=== PATIENT | female | born 1945 | race Caucasian/White ===

== ENCOUNTER 2021-08-17 13:24 | Inpatient (IN) | payer MEDICARE, OTHER, SELFPAY ==
[2021-08-17] VITALS (15 sets, daily range): BP systolic 104–167; BP diastolic 41–95; PULSE 49–60; RESP 17–32; TEMP 36.1–38.1; O2SAT 91–100; BMI 26.4
--- NOTE | ~2021-08-17 | XR_ITS ---
EXAMINATION: XR chest 1V portable INDICATION: Shortness of breath TECHNIQUE: Portable AP chest at 1345 hours COMPARISON: None available FINDINGS: There are surgical changes in the right upper lobe. No focal airspace opacities are identif ied. The cardiomediastinal silhouette is normal for technique. There is no pleural effusion or pneumo thorax. IMPRESSION: 1. No acute cardiopulmonary abnormality. Reviewed, dictated and finalized at location A. TED CIRCUIT BOARD ASSEMBLER
--- NOTE | 2021-08-17 13:37 | ECG_ITS ---
Measurements Intervals [place] Rate: 51 P: 65 MS: 149 QRS: 52 QRSD: 82 T: 102 QT: 446 QTc: 414 Interpretive Statements SINUS RHYTHM WITH SECOND DEGREE AV BLOCK, 2:[address] & T-WAVE ABNORMALITY- HIGH LATERAL LEADS ABNORMAL ECG Electronically Signed On 08-17-2021 17:02:48 CHEMICAL OPERATIONS AND TRAINING by Jose Antonio Colon D.O.
[2021-08-17 13:56] LABS: Basophils Percent Auto 0.3 % (0.2-1.2); Eosinophils Percent Auto 0.4 % (0-4.4); Hematocrit 37.9 % (37.0-47.0); Hemoglobin 11.9 g/dL (12.0-15.0); Immature Granulocyte Absolute 0.05 K/mm3 (0.00-0.031); Immature Granulocyte Percent A 0.5 % (0-0.5); Lymphocytes Absolute Auto 0.95 K/mm3 (0.9-3.2); Lymphocytes Percent Auto 8.9 % (18.3-44.2); Mean Corpuscular HGB Conc 31.4 g/dl (32-36); Mean Corpuscular Hemoglobin 30.2 pg (26-34); Mean Corpuscular Volume 96.2 fl (80-100); Mean Platelet Volume 10.3 fl (7.4-10.4); Monocytes Absolute Auto 0.6 K/mm3 (0.1-0.6); Monocytes Percent Auto 5.5 % (2.6-8.5); Neutrophils Percent Auto 84.4 % (45.5-73.1); Platelet Count Result 315 k/mm3 (150-375); Red Blood Count 3.94 M/mm3 (4.2-5.4); Red Cell Distribution Width 13.2 % (11.5-14.5); White Blood Count 10.7 K/mm3 (4.5-10.0)
[2021-08-17 14:07] LABS: Partial Thromboplastin Time 28.7 SECONDS (22.3-36.8); Prothrombin Time 12.8 Seconds (11.1-14.7)
[2021-08-17 14:08] LABS: Alanine Aminotransferase 26 U/L (4-35); Albumin Level 4.5 g/dL (3.5-5.1); Alkaline Phosphatase 85 U/L (38-126); Anion Gap 12 mmol/L (8-16); Aspartate Amino Transferase 25 U/L (14-36); Bilirubin,Total 0.7 mg/dL (0.2-1.3); Blood Urea Nitrogen 36 mg/dL (7-17); Calcium 9.5 mg/dL (8.4-10.2); Carbon Dioxide 23 mmol/L (22-30); Chloride 103 mmol/L (98-107); Estimated CRCL calculation 17 ml/min; Estimated Glomerular Filt Rate 20; Glucose 161 mg/dL (65-110); Potassium 4.4 mmol/L (3.4-5.0); Sodium 138 mmol/L (137-145)
[2021-08-17 14:25] LABS: NT Pro B Type Natriuretic Pept 6190 pg/mL (5-100)
[2021-08-17 14:26] LABS: Troponin I 0.059 ng/mL (0.000-0.034)
--- NOTE | 2021-08-17 14:33 | ECG_ITS ---
Measurements Intervals [place] Rate: 50 P: NC: 0 QRS: -13 QRSD: 86 T: 106 QT: 466 QTc: 428 Interpretive Statements SINUS RHYTHM WITH COMPLETE HEART BLOCK JUNCTIONAL ESCAPE RHYTHM ST-T WAVE ABNORMALITY IN HIGH LATERAL LEADS- CONSIDER ISCHEMIA BASELINE ARTIFACT- II, III, AVR, AVF, V1-V6 ABNORMAL ECG Electronically Signed On 08-17-2021 17:04:31 SUPERVISOR METALIZING by Jose Antonio Colon D.O.
--- NOTE | 2021-08-17 15:21 | ED.GENADULT ---
HPI - General Adult General Chief complaint: Shortness of Breath/Dyspnea Stated complaint: SOB Time Seen by Provider: 08/17/21 13:32 History of Present Illness HPI narrative: Patient is a 76-year-old female who presents ER with chest pain or shortness of breath with exertion. Ongoing for 5 days. Cannot walk across her home which is only 950 square feet without having the symptoms. Only improved with rest. Has not had similar symptoms previously. No fevers or chills or sweats. Denies productive cough. No syncope or loss of consciousness. She does not get dizzy when she goes from sitting to standing. Related Data Home Medications Medication Instructions Recorded Confirmed Calcium 600 1,500 mg BYMOUTH DAILY 08/17/21 08/17/21 albuterol sulfate 1 puff INHALATION PRN PRN 08/17/21 08/17/21 atorvastatin 10 mg PO HS 08/17/21 08/17/21 dextroamphetamine 15 mg BID 08/17/21 08/17/21 diltiazem HCl 120 mg PO BID 08/17/21 08/17/21 fluticasone propion-salmeterol 1 inh INHALATION Q12H 08/17/21 08/17/21 [Advair Diskus] lorazepam 0.5 mg BYMOUTH PRN 08/17/21 08/17/21 tiotropium bromide [Spiriva with 1 cap INHALATION DAILY 08/17/21 08/17/21 HandiHaler] trazodone 50 mg BYMOUTH HS 08/17/21 08/17/21 Allergies Allergy/AdvReac Type Severity Reaction Status Date / Time cyclobenzaprine Allergy Severe BLISTERS Verified 08/17/21 19:11 dextromethorphan Allergy Severe HIVES Verified 08/17/21 19:11 diphenhydramine Allergy Severe HIVES Verified 08/17/21 19:11 doxylamine Allergy Severe HIVES Verified 08/17/21 19:11 eucalyptus Allergy Severe HIVES Verified 08/17/21 19:11 guaifenesin Allergy Severe HIVES Verified 08/17/21 19:11 menthol Allergy Severe HIVES Verified 08/17/21 19:11 methylphenidate Allergy Severe HIVES Verified 08/17/21 19:11 naproxen Allergy Severe HIVES Verified 08/17/21 19:11 peanut Allergy Severe HIVES Verified 08/17/21 19:11 phenylephrine Allergy Severe HIVES Verified 07/02/18 10:02 pseudoephedrine Allergy Severe HIVES Verified 07/02/18 10:02 RED WINE Allergy Unknown HIVES.. Uncoded 07/02/18 10:02 Review of Systems Review of Systems: All systems reviewed & are unremarkable except as noted in HPI and below Constitutional: Constitutional: Denies chills, Denies fever(s) and Denies weakness ENT: Denies nasal congestion and Denies sore throat Cardiovascular: Cardiovascular: Reports chest pain, Denies rapid heart rate and Denies radiating jaw, neck or arm pain Respiratory: Respiratory: Denies cough, Reports dyspnea and Denies wheezing Gastrointestinal: Gastrointestinal: Denies abdominal pain, Denies nausea and Denies vomiting Neurologic: Denies syncope, Denies focal weakness and Denies numbness PMFSH Past Medical History Medical History (Updated 08/17/21 @ 22:17 by Colette Coker PA-C) Bladder cancer Status post cystectomy. Cancer of right lung Completely excised. Required no further treatment. Chronic kidney disease Chronic obstructive pulmonary disease Diverticulitis Hyperlipidemia Hypertension Obstructive sleep apnea Resolved post UPPP. Surgical History Surgical History (Updated 08/17/21 @ 22:12 by Colette Coker PA-C) History of bilateral cataract extraction History of colonoscopy with polypectomy History of pneumonectomy Partial right pneumonectomy for lung cancer. History of repair of dehiscence of vaginal cuff History of sinus surgery History of tonsillectomy History of total cystectomy With creation of ileal conduit for bladder cancer. History of total hysterectomy History of uvulopalatopharyngoplasty Family History Family History Sibling Colon cancer Sibling Malignant neoplasm of prostate Sibling Lung cancer Mother Hypertension Acute myocardial infarction Cerebrovascular accident Father Cerebrovascular accident Acute myocardial infarction Sibling Diabetes mellitus Social History Social History (Updated 08/17/21 @
--- NOTE | 2021-08-17 17:15 | PM.IMHP ---
H&P: HPI History of Present Illness Date/Time: 08/17/21 17:15 Chief Complaint: Shortness of breath. Narrative: This is a very pleasant 76-year-old female with history of hypertension, hyperlipidemia, COPD, chronic kidney disease, bladder cancer, and lung cancer who presented to the emergency department earlier today via EMS from home for evaluation of shortness of breath. Since Thursday she has noticed that she is getting short of breath with day-to-day activities such as getting dressed, which is completely unusual for her. She has also had a of couple of episodes where she feels a slight discomfort or ?a little bubble? in the center of her chest though that seems to be self-limiting and resolves within minutes. Over the last couple of days she has also felt weak in her legs when standing. Initially she was concerned for possible pulmonary embolism and thus she came in today for evaluation. EKG in the emergency department showed findings of complete heart block and a call was placed to her recruitment manager in [place] however there were no beds available for transfer and thus she is being admitted in this setting for consultation with Dr. Berry. With further questioning the patient mentions that she recently had her diltiazem dose increased to help control her blood pressure a bit better however she stopped taking it after a couple of weeks as it made her feel off balance and unsteady. She monitors her blood pressures at home and reports that they have been stable however over the past week or so she has noticed that her pulse has dropped into the 50s when typically it is at least in the 70s or 80s. She denies syncope, near syncope, chest pain, pleuritic pain, palpitations, orthopnea, PND, lower extremity edema, nausea, vomiting, and sweats. Review of Systems Review of Systems: Twelve systems were reviewed. No fever, chills, or sweats. No recent cold or flu symptoms. [facility] Past Medical History Medical History (Updated 08/17/21 @ 22:17 by Colette Coker PA-C) Bladder cancer Status post cystectomy. Cancer of right lung Completely excised. Required no further treatment. Chronic kidney disease Chronic obstructive pulmonary disease Diverticulitis Hyperlipidemia Hypertension Obstructive sleep apnea Resolved post UPPP. Surgical History Surgical History (Updated 08/17/21 @ 22:12 by Colette Coker PA-C) History of bilateral cataract extraction History of colonoscopy with polypectomy History of pneumonectomy Partial right pneumonectomy for lung cancer. History of repair of dehiscence of vaginal cuff History of sinus surgery History of tonsillectomy History of total cystectomy With creation of ileal conduit for bladder cancer. History of total hysterectomy History of uvulopalatopharyngoplasty Family History Family History (Updated 08/17/21 @ 22:14 by Colette Coker PA-C) Sibling Colon cancer Sibling Malignant neoplasm of prostate Sibling Lung cancer Mother Hypertension Acute myocardial infarction Cerebrovascular accident Father Cerebrovascular accident Acute myocardial infarction Sibling Diabetes mellitus Social History Social History (Updated 08/17/21 @ 22:15 by Colette Coker PA-C) Social History: Surrogate decision maker: Piero Junior, kathe. Code status: Full code. Smoking packs per day: 1 Smoking cigarettes per day: 20.0 Years smoked: 40 Smoking pack-years: 40.00 Smoking status: Former smoker Tobacco type: cigarettes and e-cigarettes/vaping Additional smoking assessment comments: Patient continues to vape. Alcohol intake: never Substance use: never Additional living arrangements comments: The patient lives in her own home in [place]. Additional occupation/education comments: Retired from the [employer]. Meds Home Medications and Allergies Allergies Allergy/AdvReac Type Severity Reaction Status Date / Time cyclobenzaprine Allergy Severe
[2021-08-17] MEDS: FUROSEMIDE INJ 40 MG/4 ML VIAL IV PUSH (18:04)
--- NOTE | 2021-08-17 18:06 | PC.NURSE ---
Patient having sudden onset of increased respiratory effort. Patient states it is harder to take a deep breath. EDP David in room. Patient to be placed on BiPAP.
--- NOTE | 2021-08-17 18:23 | PC.NURSE ---
Report received by KAREN Gonzalez with the ED department at [id number]. All questions answered and plan of care reviewed. Patient to go to IMU room 201.
--- NOTE | 2021-08-17 19:35 | PC.NURSE ---
Pt appears anxious on bipap and keeps grabbing at it, requesting water. Educated pt on need to remain on bipap until RT arrives to transport pt to ICU. Pt verbalized understanding.
--- NOTE | 2021-08-17 20:02 | ADMGEN ---
This patient, Radha Junior, was admitted to Intensive Care Unit-6. Patient/family oriented to hospital policies and general routines including ID bracelet, bed and alarms, visiting hours, pain management, procedures, bathroom and other care routines, personal items, smoking policy, room service/diet, and visiting hours. Information on how to activate the Rapid Response Team has been discussed. Patient/Family are encouraged to report perceived risks to care and to ask questions if they do not understand what they are told or what they should do.
[2021-08-18] VITALS (13 sets, daily range): BP systolic 125–151; BP diastolic 47–70; PULSE 46–54; RESP 14–22; TEMP 36.9–37.6; O2SAT 91–95
[2021-08-18 04:41] LABS: Hematocrit 33.7 % (37.0-47.0); Mean Corpuscular HGB Conc 32.6 g/dl (32-36); Mean Corpuscular Hemoglobin 30.2 pg (26-34); Mean Corpuscular Volume 92.6 fl (80-100); Mean Platelet Volume 10.4 fl (7.4-10.4); Platelet Count Result 327 k/mm3 (150-375); Red Blood Count 3.64 M/mm3 (4.2-5.4); Red Cell Distribution Width 13.3 % (11.5-14.5); White Blood Count 9.7 K/mm3 (4.5-10.0)
[2021-08-18 04:53] LABS: Alanine Aminotransferase 21 U/L (4-35); Albumin Level 3.8 g/dL (3.5-5.1); Alkaline Phosphatase 73 U/L (38-126); Anion Gap 10 mmol/L (8-16); Aspartate Amino Transferase 20 U/L (14-36); Bilirubin,Total 0.6 mg/dL (0.2-1.3); Blood Urea Nitrogen 38 mg/dL (7-17); Calcium 8.7 mg/dL (8.4-10.2); Carbon Dioxide 25 mmol/L (22-30); Chloride 104 mmol/L (98-107); Estimated CRCL calculation 14 ml/min; Estimated Glomerular Filt Rate 18; Glucose 149 mg/dL (65-110); Magnesium 2.2 mg/dL (1.6-2.3); Potassium 4.1 mmol/L (3.4-5.0); Sodium 139 mmol/L (137-145)
[2021-08-18 05:38] LABS: Thyroid Stimulating Hormone Reflex 0.578 uIU/mL (0.465-4.68)
--- NOTE | 2021-08-18 09:19 | PM.CNCAR ---
Assessment and Plan Additional Plan This is a 76-year-old woman presenting to the hospital with the onset of shortness of breath 5-7 days ago. He does have underlying lung disease with prior history of smoking and a previous history of right upper lobectomy for carcinoma in the past. Despite this before the last week or so she has not been experiencing significant dyspnea. Upon arrival to the hospital she has been found to have AV node dysfunction with AV dissociation and a narrow QRS escape rhythm with a heart rate in the low 50s. She had been taking diltiazem for many years the dosage was recently increased by her physician although she was feeling poorly and reduce the dosage back to 120 mg recently. In this setting she presents with AV dissociation. She has been off the diltiazem now for approximately 24 hours. Her rhythm does look some better this morning she appears to be conducting two-to-one rather than complete heart block at this moment. At this point it is not certain that a pacemaker device will need to be implanted. We will watch her rhythm for at least another 24 hours in the hospital off of diltiazem and then make that decision. It would be useful if the echocardiogram from her physician's office could be obtained for our review however that certainly will not be possible on Thursday. At this time we have no additional cardiac recommendations to make for today Bob Berry MD [facility] History of Present Illness History of Present Illness Consult date/time: 08/18/21 09:19 Reason For Visit: complete heart block Narrative: This is a very pleasant 76-year-old lady am seeing at the request of the hospitalist because of AV block. The patient is unknown to me prior to this encounter. Apparently she has not had any previous significant cardiac problems all she although she says she has a wool scourer out in [place] in the [facility] who provides her primary care as well as follows her cardiac status. She says that she has been given diltiazem for many years as an antihypertensive. She started to feel badly with the exertional shortness of breath last weekend or on Thursday of this past week. She says with modest activities that normally she can not carry out without any difficulty she was experiencing dyspnea and she was hoping this would resolve but when it did not she finally came into [facility] yesterday for evaluation. In the emergency room was noted that she was bradycardic and electrocardiogram was done which demonstrates sinus rhythm with AV dissociation and a narrow QRS escape rhythm with a heart rate in the 50s. In this setting she was admitted to the hospital for further observation and management. She reports that her physician in [facility] did an echocardiogram for some reason within the last couple of weeks and she was to see him in follow-up in the near future to discuss those findings. She can not tell me specifically why that exam was done. She is not having any symptoms of chest pain pressure or heaviness she is not experiencing orthopnea PND or accumulating edema. She has never had a syncopal episode. The patient states that during a recent appointment her diltiazem dosage was increased from 120 mg to 240 mg to treat her blood pressure more aggressively. She felt poorly when the dosage was increased and on her own accord reduced it back to 120. In this setting I am seeing her in consultation today. She is supine in bed offers no complaints and appears to be very comfortable. Current telemetry demonstrates sinus rhythm with 2-1 conduction at a heart rate of 51. Her principal comorbidities include a couple of malignancies. She has had a previous carcinoma of the bladder and has an ileal conduit and also has a history of non-small cell lung cancer status post right upper lobectomy in the past out at [facility]. Review of Systems Constitutional: Constitutional: Reports fatigue and Reports leth
--- NOTE | 2021-08-18 11:02 | WPDCNINT ---
Assessment and Plan Assessment and plan (1) Complete heart block: Code(s): I44.2 - Atrioventricular block, complete Status: Acute Assessment and Plan: Patient presented with worsening dyspnea, possible chest discomfort -in the ER was found to be in complete heart block, -this morning she has a 2:1 block -troponin slightly elevated -appreciate Cardiology evaluation recommendation -could be residual Cardizem, she is off of the medication since approximately 24 hours. Rhythm looks better on the monitor. Will continue to monitor the next 24 hours as per than the diltiazem will be out of her system. -an echocardiogram in a.m. (2) Shortness of breath: Code(s): R06.02 - Shortness of breath Status: Acute Assessment and Plan: Likely due to above, possible signs of heart failure, chest x-ray in November showing a infiltrates on the chest x-ray -patient was given dose of Lasix in the ER -echo in pending (3) Elevated troponin: Code(s): R77.8 - Other specified abnormalities of plasma proteins Status: Acute Assessment and Plan: Elevated troponin, Cardiology following, continue to trend (4) Chronic kidney disease: Code(s): N18.9 - Chronic kidney disease, unspecified Status: Acute Assessment and Plan: Chronic kidney disease, on urine output has been adequate, renal functions stable, continue monitor -continue to monitor electrolytes (5) Chronic obstructive pulmonary disease: Code(s): J44.9 - Chronic obstructive pulmonary disease, unspecified Status: Acute Assessment and Plan: will will restart home bronchodilators (6) Hypertension: Code(s): I10 - Essential (primary) hypertension Status: Acute Assessment and Plan: In blood pressures have been stable at this time, continue to monitor Additional Plan Discussed with patient updated with her condition and plan of care. She is aware as she is currently in the hospital be monitored for heart rate Discussed with cardiology Code status: Full code Critical care time spent: 41 minute This dictation may have been done utilizing a voice recognition system. Attempts have been made to correct errors. However, there may be uncorrected grammatical, spelling, and recognition errors present. Due to a high probability of clinically significant, life threatening deterioration, the patient required my highest level of preparedness to intervene emergently and I personally spent this critical care time directly and personally managing the patient. This critical care time included obtaining a history; examining the patient; pulse oximetry; ordering and review of studies; arranging urgent treatment with development of a management plan; evaluation of patient's response to treatment; frequent reassessment; and discussions with other providers. It was exclusive of separately billable procedures and treating other patients and teaching time. Please see Assessment and Plan section and the rest of the note for further information on patient assessment and treatment Informatics Specialist Consult Note Consult date: 08/18/21 Time Seen: 07:05 Reason for consult: Complete heart block, bradycardia HPI: Radha Junior is a 76 year old female with past medical of bladder cancer status post cystectomy, ileal conduit, cancer of the right lung, completely excised, chronic kidney disease, COPD, diverticulitis, hyperlipidemia, essential hypertension, obstructive sleep apnea, tobacco abuse presented the ED with complains of increasing exertional shortness of breath x1 week. In the ER she was found to be bradycardic and EKG demonstrated sinus rhythm with high degree AV block, this morning tele monitor shows 2-1 heart block. Patient is asymptomatic, denies any syncopal episodes, dizziness, nausea, vomiting. States she is doing better this morning. She has been on Cardizem p.o. at 120 mg daily and her route sales delivery drivers supervisor increase in to 40 mg rece
[2021-08-18 12:44] LABS: Troponin I 0.255 ng/mL (0.000-0.034)
--- NOTE | 2021-08-18 18:30 | PC.NURSE ---
This patient, Radha Junior, was transferred to [Formerly named [facility] ] on 08/18/21 at 1815. Personal belongings sent with patient. Report given to [Jazmyn ]. Appropriate documentation sent with patient.
--- NOTE | 2021-08-18 18:39 | PC.NURSE ---
Report received by KAREN Cameron at 1804. All questions answered and plan of care reviewed. Patient to go to IMU room 206-2.
--- NOTE | 2021-08-18 18:40 | PC.NURSE ---
Patient transferred to IMU room 206-2 at 1824. All belonging transferred with patient to room. Patient oriented to room, alarms and call light.
[2021-08-18] MEDS: FLUTICASONE/SALMETEROL 115-21 MCG INHALER 1 PUFF 2 PUFF INHALATION (21:46)
--- NOTE | 2021-08-18 22:41 | ECG_ITS ---
Measurements Intervals [place] Rate: 56 P: [place]: 0 QRS: 40 QRSD: 82 T: 100 QT: 446 QTc: 431 Interpretive Statements SINUS RHYTHM WITH SECOND DEGREE AV BLOCK, TYPE I ST-T WAVE ABNORMALITY IN HIGH LATERAL LEADS- CONSIDER ISCHEMIA BASELINE ARTIFACT- I, II, III, AVR, AVL, AVF ABNORMAL ECG Electronically Signed On 08-19-2021 7:31:28 BUZZSAW OPERATOR HELPER by Jose Antonio Colon D.O.
[2021-08-18] MEDS: ACETAMINOPHEN 325 MG TABLET 650 MG PO (23:05)
[2021-08-19] VITALS (13 sets, daily range): BP systolic 132–162; BP diastolic 56–79; PULSE 43–99; RESP 18–24; TEMP 36.9–37.3; O2SAT 90–96
--- NOTE | 2021-08-19 | ECHO_ITS ---
Patient Info Name: Radha Junior Age: 76 years : 1945 Gender: Female Ht: 64 in Wt: 154 lbs BSA: 1.79 m2 HR: 67 bpm BP: 132 / 58 mmHg Heart Rhythm: Sinus Rhythm, Indeterminant Exam Date: 08/19/2021 10:35 AM Exam Location: [facility] Pulmonary Patient Status: Inpatient Admit Date: 08/18/2021 Staff Ordering Physician: Benjamin Crain MD Healthcare Market Consultant: Maury Lopes RDCS, RT Attending Provider: Jamel Dietrich MD Referring Physician: Paras BARCENAS; Exam Type: CA echo doppler color flow Study Info Indications I49.8 - Other specified cardiac arrhythmias Complete two-dimensional, color flow and Doppler transthoracic echocardiogram is performed. Strain analysis performed. Summary 1. Complete two-dimensional, color flow and Doppler transthoracic echocardiogram is performed. 2. Left ventricular chamber dimension is normal. 3. Left ventricular systolic function is hyperdynamic, estimated at >70%. 4. There is mildly increased left ventricular wall thickness. 5. The left ventricular diastolic function is grade II diastolic dysfunction. 6. Global longitudinal strain is mildly elevated at -17 %. 7. There is mild aortic valve stenosis with a peak velocity of 298 cm/s, mean gradient of 8 mmHg, and aortic valve area of 2.1 cm2. 8. There is mild to moderate mitral valve stenosis. 9. There is mild mitral valve regurgitation. 10. There is trace tricuspid valve regurgitation. 11. Moderate pulmonary hypertension, estimated pulmonary arterial systolic pressure is 50 mmHg. Left Ventricle Left ventricular chamber dimension is normal. Left ventricular systolic function is hyperdynamic, estimated at >70%. There is mildly increased left ventricular wall thickness. The left ventricular diastolic function is grade II diastolic dysfunction. Global longitudinal strain is mildly elevated at -17 %. Right Ventricle Right ventricular chamber dimension is normal. Right ventricular systolic function is normal. Left Atria Left atrial chamber dimension is mildly enlarged. Right Atria Right atrial chamber dimension is normal. Aortic Valve The aortic valve is not well visualized. There is mild aortic valve stenosis with a peak velocity of 298 cm/s, mean gradient of 8 mmHg, and aortic valve area of 2.1 cm2. There is no aortic valve regurgitation. Pulmonic Valve The pulmonic valve is not well visualized. There is trace pulmonic regurgitation. Mitral Valve The mitral valve has calcified leaflets. There is mild to moderate mitral valve stenosis. There is mild mitral valve regurgitation. The mitral valve annulus is severely calcified. Tricuspid Valve The tricuspid valve leaflets are normal. There is trace tricuspid valve regurgitation. Moderate pulmonary hypertension, estimated pulmonary arterial systolic pressure is 50 mmHg. Pericardium/Pleural The pericardium appears normal. There is small pericardial effusion. Inferior Vena Cava Normal inferior vena cava with >50% collapse upon inspiration consistent with normal right atrial pressure, 5 mmHg. Aorta The aortic root size at the sinus of Valsalva is normal. There is mild aortic atherosclerosis. Left Ventricular Outflow Tract Name Value Normal LVOT 2D
[2021-08-19 06:12] LABS: Basophils Percent Auto 0.5 % (0.2-1.2); Eosinophils Absolute Auto 0.2 K/mm3 (0-0.3); Eosinophils Percent Auto 2.2 % (0-4.4); Hematocrit 38.1 % (37.0-47.0); Hemoglobin 11.9 g/dL (12.0-15.0); Immature Granulocyte Absolute 0.05 K/mm3 (0.00-0.031); Immature Granulocyte Percent A 0.6 % (0-0.5); Lymphocytes Percent Auto 15.9 % (18.3-44.2); Mean Corpuscular HGB Conc 31.2 g/dl (32-36); Mean Corpuscular Hemoglobin 30.4 pg (26-34); Mean Corpuscular Volume 97.4 fl (80-100); Mean Platelet Volume 10.8 fl (7.4-10.4); Monocytes Absolute Auto 0.8 K/mm3 (0.1-0.6); Monocytes Percent Auto 9.5 % (2.6-8.5); Neutrophils Absolute Auto 5.8 K/mm3 (1.3-6.7); Neutrophils Percent Auto 71.3 % (45.5-73.1); Platelet Count Result 300 k/mm3 (150-375); Red Blood Count 3.91 M/mm3 (4.2-5.4); Red Cell Distribution Width 13.3 % (11.5-14.5); White Blood Count 8.2 K/mm3 (4.5-10.0)
[2021-08-19 06:28] LABS: Anion Gap 10 mmol/L (8-16); Blood Urea Nitrogen 40 mg/dL (7-17); Calcium 9.2 mg/dL (8.4-10.2); Carbon Dioxide 25 mmol/L (22-30); Chloride 105 mmol/L (98-107); Estimated CRCL calculation 15 ml/min; Estimated Glomerular Filt Rate 20; Glucose 105 mg/dL (65-110); Magnesium 2.5 mg/dL (1.6-2.3); Phosphorus 4.7 mg/dL (2.5-4.5); Potassium 4.2 mmol/L (3.4-5.0); Sodium 140 mmol/L (137-145)
--- NOTE | 2021-08-19 08:16 | PM.IMPN ---
Progress Note: A&P Assessment and Plan (1) Complete heart block: Code(s): I44.2 - Atrioventricular block, complete Status: Acute Assessment and Plan: Patient presented with worsening dyspnea, possible chest discomfort -in the ER was found to be in complete heart block, -this morning she has a 2:1 block -troponin slightly elevated -appreciate Cardiology evaluation recommendation -could be residual Cardizem, she is off of the medication since approximately 24 hours. Rhythm looks better on the monitor. Will continue to monitor the next 24 hours as per than the diltiazem will be out of her system. -an echocardiogram in a.m. (2) Shortness of breath: Code(s): R06.02 - Shortness of breath Status: Acute Assessment and Plan: Likely due to above, possible signs of heart failure, chest x-ray in November showing a infiltrates on the chest x-ray -patient was given dose of Lasix in the ER -echo in pending (3) Elevated troponin: Code(s): R77.8 - Other specified abnormalities of plasma proteins Status: Acute Assessment and Plan: Elevated troponin, Cardiology following, continue to trend (4) Chronic kidney disease: Code(s): N18.9 - Chronic kidney disease, unspecified Status: Acute Assessment and Plan: Chronic kidney disease, on urine output has been adequate, renal functions stable, continue monitor -continue to monitor electrolytes (5) Chronic obstructive pulmonary disease: Code(s): J44.9 - Chronic obstructive pulmonary disease, unspecified Status: Acute Assessment and Plan: will will restart home bronchodilators (6) Hypertension: Code(s): I10 - Essential (primary) hypertension Status: Acute Assessment and Plan: In blood pressures have been stable at this time, continue to monitor Additional Plan Discussed with patient updated with her condition and plan of care. She is aware as she is currently in the hospital be monitored for heart rate Discussed with cardiology Code status: Full code Critical care time spent: 41 minute This dictation may have been done utilizing a voice recognition system. Attempts have been made to correct errors. However, there may be uncorrected grammatical, spelling, and recognition errors present. Due to a high probability of clinically significant, life threatening deterioration, the patient required my highest level of preparedness to intervene emergently and I personally spent this critical care time directly and personally managing the patient. This critical care time included obtaining a history; examining the patient; pulse oximetry; ordering and review of studies; arranging urgent treatment with development of a management plan; evaluation of patient's response to treatment; frequent reassessment; and discussions with other providers. It was exclusive of separately billable procedures and treating other patients and teaching time. Please see Assessment and Plan section and the rest of the note for further information on patient assessment and treatment Subjective Date/time seen: 08/19/21 08:16 This is a very pleasant 76-year-old female with history of hypertension, hyperlipidemia, COPD, chronic kidney disease, bladder cancer, and lung cancer who presented to the emergency department earlier today via EMS from home for evaluation of shortness of breath. Patient was diagnosed with AV node dysfunction with AV dissociation and a narrow QRS escape rhythm with a heart rate in the low 50s. She had been taking diltiazem for many years; the dosage was recently increased by her physician; because she was feeling poorly the dosage was reduced back to 120 mg recently. In this setting she presents with AV dissociation. She has been off the diltiazem now for approximately 48 hours. Telemetry strip was reviewed and the patient remains in normal sinus rhythm with one-to-one conduction. Currently the patient is bein
[2021-08-19] MEDS: FLUTICASONE/SALMETEROL 115-21 MCG INHALER 1 PUFF 2 PUFF INHALATION (08:49)
[2021-08-19] MEDS: ACETAMINOPHEN 325 MG TABLET 650 MG PO (09:22)
--- NOTE | 2021-08-19 10:24 | ECG_ITS ---
Measurements Intervals Crowder Rate: 58 P: 59 MS: 195 QRS: 39 QRSD: 78 T: 99 QT: 443 QTc: 438 Interpretive Statements SINUS RHYTHM WITH SECOND DEGREE AV BLOCK, TYPE I NONSPECIFIC ST & T-WAVE ABNORMALITY- LAT/HIGH LAT LEADS ABNORMAL ECG Electronically Signed On 08-19-2021 11:15:32 UNARMED SECURITY GUARD by Jose Antonio Colon D.O.
--- NOTE | 2021-08-19 10:33 | PM.PNCARD ---
Progress Note: A&P Additional Plan 76-year-old lady with longstanding hypertension which had been treated with diltiazem. Presenting with some symptoms of dyspnea possibly related to AV node dysfunction. She is off of diltiazem and clearly her her AV node physiology is improving. She now is showing second-degree AV block Mobitz type 1 rather than AV dissociation. The diltiazem should be discontinued and she which she should not receive any medication in the future that potentiate her AV node. From the cardiac perspective she can be discharged at this time as she has follow-up with cardiology in [place] at [facility]. Any questions regarding this situation please let me know Bob Berry MD [facility] Subjective Date/time seen: Date of service: 08/19/21 10:33 Interval history: Follow-up visit in this 76-year-old lady with: AV node dysfunction. Patient presented with symptoms of some dyspnea was not significantly bradycardic but was seen on ECG to have evidence of AV dissociation. Had a narrow QRS escape rhythm with a heart rate in the low 50s. She was taking a moderate dose of diltiazem for hypertension. Diltiazem has been stopped. Telemetry today shows sinus rhythm with Mobitz type 1 second-degree AV block. She is anxious this morning but otherwise asymptomatic. Exam Const: General: comfortable and no acute distress HENMT: Mouth: Yes moist mucous membranes Eyes: Sclera: sclerae normal Pupils: Equal, round and reactive pupils present Neck: Neck: supple and no JVD Resp: Effort & Inspection: normal respiratory effort Auscultation: clear to auscultation bilaterally Cardio: Rate: regular rate Other: No murmur no gallop, occasional pause GI: GI Palp: Yes Soft to palpation Auscultation: normal bowel sounds Skin: General skin exam: normal color Neuro: Cognition (Neuro): normal cognition Extrem: General: normal to inspection Objective Data Vital Signs Vital Signs: Vital Signs - 24 hr 08/18/21 12:00 08/18/21 14:00 08/18/21 16:00 Temperature 36.9 C 37.1 C Pulse Rate 51 L 51 L 48 L Respiratory Rate 21 H 19 Blood Pressure 135/66 145/62 H Pulse Oximetry 92 94 08/18/21 18:00 08/18/21 20:00 08/18/21 22:00 Temperature 37.4 C Pulse Rate 51 L 48 L 46 L Respiratory Rate 18 Blood Pressure 151/58 H Pulse Oximetry 93 08/19/21 00:00 08/19/21 00:05 08/19/21 02:00 Temperature 37.3 C Pulse Rate 55 L 50 L 45 L Respiratory Rate 18 Blood Pressure 133/61 Pulse Oximetry 95 95 08/19/21 04:00 08/19/21 04:20 08/19/21 06:00 Temperature 36.9 C Pulse Rate 43 L 54 L 53 L Respiratory Rate 19 Blood Pressure 132/58 L Pulse Oximetry 92 94 08/19/21 08:00 Temperature Pulse Rate 71 Respiratory Rate 24 H Blood Pressure 148/56 H Pulse Oximetry 94 Intake/Output Intake/Output: Intake & Output 08/16/21 08/17/21 08/18/21 08/19/21 23:59 23:59 23:59 23:59 Intake Total 2840 290 Output Total 900 800 300 Balance -900 2040 -10 Meds/Results Medications: Active Medications Generic Name Dose Route Start Last Admin Trade Name Freq PRN Reason Stop Dose Admin Acetaminophen 650 mg 08/17/21 16:13 08/19/21 09:22 Acetaminophen 325 Mg Tablet PO 650 mg Q4H PRN Administration Mild Pain (1-3) or Fever Albuterol 1 puff 08/18/21 11:19 Albuterol Sulfate (*Sp) Aerosol 1 Puff INHALATION PRN PRN Shortness Of Breath Fluticasone/Salmeterol 2 puff 08/18/21 20:00 08/19/21 08:49 Fluticasone/Salmeterol 115-21 Mcg Inhaler 1 Puff INHALATION 2 puff Q12HRT MARY JANE Administration Umeclidinium [place] 1 puff 08/18/21 08:00 Umeclidinium [place] 62.5 Mcg Ellipta INHALATION DAILYRT [facility] Radiology Results: ITS Impressions Chest X-Ray 08/17/21 13:49 IMPRESSION: 1. No acute cardiopulmonary abnormality. Labs Labs: Laboratory Results - last 24 hr 08/18/21 08/19/21 08/19/21 12:11 04:55 04:55 WBC 8.2 RBC
--- NOTE | 2021-08-19 11:44 | PM.DS ---
DS: Admitting Diagnosis Discharge Date 08/19/2021 Admitting Diagnosis (1) Complete heart block: (2) Shortness of breath: (3) Elevated troponin: (4) Chronic kidney disease: (5) Hypertension: (6) Chronic obstructive pulmonary disease: DS: Discharge Diagnosis Discharge Diagnosis (1) Complete heart block: Code(s): I44.2 - Atrioventricular block, complete Status: Acute Assessment and Plan: Patient presented with worsening dyspnea, possible chest discomfort -in the ER was found to be in complete heart block, -this morning she has a 2:1 block -troponin slightly elevated -appreciate Cardiology evaluation recommendation -could be residual Cardizem, she is off of the medication since approximately 24 hours. Rhythm looks better on the monitor. Will continue to monitor the next 24 hours as per than the diltiazem will be out of her system. -an echocardiogram in a.m. (2) Shortness of breath: Code(s): R06.02 - Shortness of breath Status: Acute Assessment and Plan: Likely due to above, possible signs of heart failure, chest x-ray in November showing a infiltrates on the chest x-ray -patient was given dose of Lasix in the ER -echo in pending (3) Elevated troponin: Code(s): R77.8 - Other specified abnormalities of plasma proteins Status: Acute Assessment and Plan: Elevated troponin, Cardiology following, continue to trend (4) Chronic kidney disease: Code(s): N18.9 - Chronic kidney disease, unspecified Status: Acute Assessment and Plan: Chronic kidney disease, on urine output has been adequate, renal functions stable, continue monitor -continue to monitor electrolytes (5) Chronic obstructive pulmonary disease: Code(s): J44.9 - Chronic obstructive pulmonary disease, unspecified Status: Acute Assessment and Plan: will will restart home bronchodilators (6) Hypertension: Code(s): I10 - Essential (primary) hypertension Status: Acute Assessment and Plan: In blood pressures have been stable at this time, continue to monitor DS: Summary Hospital Course Reason for hospitalization: Shortness of breath. Hospital Course: Please refer to admission H& P. Briefly, this is a very pleasant 76-year-old female with history of hypertension, hyperlipidemia, COPD, chronic kidney disease, bladder cancer, and lung cancer who presented to the emergency department earlier today via EMS from home for evaluation of shortness of breath. Since Thursday she has noticed that she is getting short of breath with day-to-day activities such as getting dressed, which is completely unusual for her. Patient cares a prior history of smoking. She has also had a of couple of episodes where she feels a slight discomfort or ?a little bubble? in the center of her chest though that seems to be self-limiting and resolves within minutes. Over the last couple of days she has also felt weak in her legs when standing. Initially she was concerned for possible pulmonary embolism and thus she came in today for evaluation. EKG in the emergency department showed findings of complete heart block and a call was placed to her dog walker in [place] however there were no beds available for transfer and thus she is being admitted in this setting for consultation with Dr. Berry. Patient mentions that she recently had her diltiazem dose increased to help control her blood pressure a bit better however she stopped taking it after a couple of weeks as it made her feel off balance and unsteady. She monitors her blood pressures at home and reports that they have been stable however over the past week or so she has noticed that her pulse has dropped into the 50s when typically it is at least in the 70s or 80s. She denies syncope, near syncope, chest pain, pleuritic pain, palpitations, orthopnea, PND, lower extremity edema, nausea, vomiting, and sweats. For hospital course discharge diagnosis above.
--- NOTE | 2021-08-19 16:37 | PCRCNOTE ---
HOME O2 EVAL DONE, NO HOME O2 NEEDED, RN NOTIFIED
== END 2021-08-19 16:06 | disposition home or self-care (01) | DRG 310 ==
LOC: ANHED 16:31 → ANHIMU 17:30 → ANHICU 18:33 → ANHIMU 08-19 08:58 → ANHICU 08-21 10:27 → ANHIMU 08-21 10:27
PROVIDERS: Internal Medicine; Physician Assistant; Admitting Provider Internal Medicine; Emergency Provider Emergency Medicine; Visit Provider Internal Medicine
DX: I44.2 Atrioventricular block, complete (principal); R06.02 Shortness of breath; R77.8 Other specified abnormalities of plasma proteins; J44.9 Chronic obstructive pulmonary disease, unspecified; I12.9 Hypertensive chronic kidney disease with stage 1 through stage 4 chronic kidney disease, or unspecified chronic kidney disease; N18.9 Chronic kidney disease, unspecified; E78.5 Hyperlipidemia, unspecified; Z98.42 Cataract extraction status, left eye; Z98.41 Cataract extraction status, right eye; Z85.51 Personal history of malignant neoplasm of bladder; Z85.118 Personal history of other malignant neoplasm of bronchus and lung; Z87.891 Personal history of nicotine dependence
CPT/HCPCS: 36415; 71045; 80048; 80053; 83735; 83880; 84100; 84443; 84484; 85025; 85027; 85610; 85730; 93005; 93306; 94002; 94618; 94640; 96374; 97161; 99285; A9270; G0378; J1940

== ENCOUNTER 2022-08-21 10:29 | Outpatient (CLI) | payer MEDICARE, OTHER, SELFPAY ==
--- NOTE | ~2022-08-21 | XR_ITS ---
Left Hand Technique: PA and lateral views were obtained. Clinical History: Pain Findings: No acute fracture or dislocation is seen. Osseous alignment is anatomic. Mild degenerative change present at the first CMC joint, and at the interphalangeal joint of the thumb. Soft tissues ar e unremarkable. Impression: Mild degenerative changes at the first CMC joint and interphalangeal joint of the thumb. 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
== END 2022-08-21 10:30 | disposition home or self-care (01) ==
PROVIDERS: PCP Family Medicine; Visit Provider Physician Assistant Medical
DX: S69.90XA Unspecified injury of unspecified wrist, hand and finger(s), initial encounter (principal); X58.XXXA Exposure to other specified factors, initial encounter
CPT/HCPCS: 73120

== ENCOUNTER 2023-01-13 12:20 | Outpatient (CLI) | payer MEDICARE, OTHER, SELFPAY ==
--- NOTE | 2023-01-13 12:32 | ECHO_ITS ---
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 Summary 1. Complete two-dimensional, color flow and Doppler transthoracic echocardiogram is performed. 2. Left ventricular chamber dimension is normal. 3. Left ventricular systolic function is normal, estimated at 65-70%. 4. The left ventricular diastolic function is grade I diastolic dysfunction. 5. E/e' 37 is significantly elevated. 6. Left atrial chamber dimension is mildly enlarged. 7. There is moderate aortic valve sclerosis. 8. There is mild aortic valve stenosis with a peak velocity of 252 cm/s, mean gradient of 11 mmHg, and aortic valve area of 1.5 cm2. 9. The mitral valve has severely calcified leaflets and severely calcified annulus. 10. There is mild mitral valve stenosis with valve area of 1.9 cm2 and mean gradient of 8 mmHg. 11. There is trace tricuspid valve regurgitation. 12. No pulmonary hypertension, estimated pulmonary arterial systolic pressure is 36 mmHg. Left Ventricle E/e' 37 is significantly elevated. Left ventricular chamber dimension is normal. Left ventricular systolic function is normal, estimated at 65-70%. The left ventricular diastolic function is grade I diastolic dysfunction. Right Ventricle Right ventricular chamber dimension is normal. Right ventricular systolic function is normal. Left Atria Left atrial chamber dimension is mildly enlarged. Right Atria Right atrial chamber dimension is normal. Aortic Valve The aortic valve is trileaflet. There is moderate aortic valve sclerosis. There is mild aortic valve stenosis with a peak velocity of 252 cm/s, mean gradient of 11 mmHg, and aortic valve area of 1.5 cm2. Pulmonic Valve There is no pulmonic regurgitation. Mitral Valve The mitral valve has severely calcified leaflets and severely calcified annulus. There is mild mitral valve stenosis with valve area of 1.9 cm2 and mean gradient of 8 mmHg. There is no mitral valve regurgitation. Tricuspid Valve There is trace tricuspid valve regurgitation. No pulmonary hypertension, estimated pulmonary arterial systolic pressure is 36 mmHg. Pericardium/Pleural There is no pericardial effusion. Inferior Vena Cava Normal inferior vena cava with >50% collapse upon inspiration consistent with normal right atrial pressure, 5 mmHg. Aorta The aortic root size at the sinus of Valsalva is normal. Left Ventricular Outflow Tract Name Value Normal LVOT 2D LVOT Diameter 1.8 cm LVOT Doppler LVOT Peak Gradient 7 mmHg LVOT Mean Gradient 4 mmHg LVOT VTI 29 cm
== END 2023-01-13 12:21 | disposition home or self-care (01) ==
LOC: ANHCARD 12:22
PROVIDERS: PCP Family Medicine; Visit Provider Internal Medicine Cardiovascular Disease
DX: I08.3 Combined rheumatic disorders of mitral, aortic and tricuspid valves (principal)
CPT/HCPCS: 93306

== ENCOUNTER 2024-09-09 12:53 | Outpatient (CLI) | payer MEDICARE, OTHER, SELFPAY ==
--- NOTE | 2024-09-09 13:03 | ECHO_ITS ---
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 Strain analysis performed. Summary 1. Complete two-dimensional, color flow and Doppler transthoracic echocardiogram is performed. 2. normal LV size and hyperdynamic function. 3. normal RV size and function. 4. dense MAC and restrcted leaflet mobility with mitral stenosis mean gradient 8mmhg. 5. TR with mild Pulmonary HTN. 6. The transthoracic echocardiogram is normal by two-dimensional, color flow imaging, and Doppler interrogation. 7. Technically difficult study with limited views. Left Ventricle Left ventricular systolic function is normal, estimated at 65-70%. Right Ventricle Right ventricular chamber dimension is normal. Right ventricular systolic function is normal. Left Atria Left atrial chamber dimension is mildly enlarged. Right Atria Right atrial chamber dimension is mildly enlarged. Aortic Valve The aortic valve is trileaflet. There is mild aortic valve sclerosis. There is mild aortic valve stenosis with a peak velocity of 237 cm/s, mean gradient of 13 mmHg, and aortic valve area of 2.3 cm2. There is moderate aortic valve calcification. Pulmonic Valve The pulmonic valve is not well visualized. Mitral Valve The mitral valve has thickened leaflets, calcified leaflets and calcified annulus. There is mild mitral valve stenosis. There is mild to moderate mitral valve regurgitation. There is left and right commissural mitral valve calcification. The mitral valve annulus is moderately calcified. Tricuspid Valve The tricuspid valve leaflets are not well visualized. There is trace tricuspid valve regurgitation. Mild pulmonary hypertension, estimated pulmonary arterial systolic pressure is 44 mmHg. Pericardium/Pleural The pericardium appears normal. There is no pericardial effusion. Aorta The aortic root size at the sinus of Valsalva is normal. Left Ventricular Outflow Tract Name Value Normal LVOT 2D LVOT Diameter 2.1 cm LVOT Doppler LVOT Peak Gradient 7 mmHg LVOT Mean Gradient 4 mmHg LVOT VTI 34 cm LVOT VTI/AV VTI Ratio 0.7 LVOT Stroke Volume 118 ml LVOT CO 9.0 l/min LVOT CI 5.1 l/min/m2 Pulmonic Valve Name Value Normal RVOT Doppler RVOT Peak Gradient 3 mmHg PV Doppler PV Peak Gradient 5 mmHg Mitral Valve Name Value Normal MV Doppler MV Peak Gradient 20 mmHg MV Mean Gradient 8 mmHg MV Area (Cont Eq VTI) 2.5 cm2 MV Regurgitation Doppler MR Peak Gradient 137 mmHg Tricuspid Valve Name Value Normal TV Regurgitation Doppler TR Peak Velocity 291 cm/s TR Peak Gradient 34 mmHg Estimated PAP/RSVP RA Pressure 10 mmHg <=5 PA Systolic Pressure 44 mmHg <36 RV Systolic Pressure 44 mmHg <36 Aorta Name Value Normal Ascending Aorta Ao Root Diameter (MM) 2.8 cm Ao Root Diam Index (MM) 1.6 cm/m2 Aortic Valve Name Value Normal AV 2D/MM AV Area (Planimetry) 1.1 cm2 AV Doppler AV Peak Velocity 237 cm/s AV Peak Gradient 22 mmHg AV Mean Gradient 13 mmHg AV VTI 50 cm AV Area (Cont Eq VTI) 2.3 cm2 >=3.0 AV Area (Cont Eq Ferdinand) 1.9 cm2 AV Regurgitation 2D LVOT Area 3.4 cm2 Ventricles Name Value Normal LV Dimensions 2D/MM LVOT Diameter 2.1 cm LV Fractional Shortening/Ejection Fraction 2D/MM LV Diastolic Volume (4C MOD) 68 ml LV EF (4C MOD) 63 % LV Diastolic Volume (2C MOD) 50 ml LV EF (2C MOD) 54 % LV Diastolic Volume (BP MOD) 59 ml 46-106 LV Diastolic Volume Index (BP MOD) 33 ml/m2 29-61 LV Systolic Volume (BP MOD) 25 ml 14-42 LV Systolic Volume Index (BP MOD) 14 ml/m2 8-24 LV EF (BP MOD) 59 % 54-74 LV Diastolic Length (4C) 7.7 cm LV Systolic Length (4C) 6.6 cm LV Stroke Volume (4C MOD) 43 ml Atria Name Value Normal LA Dimensions LA Dimension (MM) 3.5 cm 2.7-3.8 EchoPAC Name Value Normal CHARMAINE AA peak sys SL (AWMA) 2.9 % AAS peak sys SL (AWMA) 14.8 % AI peak sys SL (AWMA) 13.1 % AL peak sys SL (AWMA) 12.3 % AP peak sys SL (AWMA) 7.7 % peak sys SL (AWMA) 18.7 % AVC (AWMA) 378 ms BA peak sys SL (AWMA) 4.7 % BAS peak sys SL (AWMA) 12.4 % BI peak sys SL (AWMA) 13.6 % BL peak sys SL (AWMA) 2.6 % BP peak sys SL (AWMA) 5.4 % BS peak sys SL (AWMA) 11.8 % G peak SL(A2C) (AWMA) 10.0 % G peak SL(A4C) (AWMA) 11.2 % G peak SL(APLAX) (AWMA) 11.4 % G peak SL(Avg) (AWMA) 10.9 % MA peak sys SL (AWMA) 4.1 % MAS peak sys SL (AWMA) 16.3 % GA peak sys SL (AWMA) 14.9 % ML peak sys SL (AWMA) 4.6 % MP peak sys SL (AWMA) 4.6 % MS peak sys SL (AWMA) 15.3 % Report Signatures
== END 2024-09-09 12:54 | disposition home or self-care (01) ==
LOC: ANHCARD 12:53
PROVIDERS: PCP Family Medicine; Visit Provider Internal Medicine Cardiovascular Disease
DX: I05.0 Rheumatic mitral stenosis (principal); I27.20 Pulmonary hypertension, unspecified
CPT/HCPCS: 93306

== ENCOUNTER 2025-02-03 09:37 | Outpatient (CLI) | payer MEDICARE, OTHER, SELFPAY ==
--- NOTE | ~2025-02-03 | NM_ITS ---
EXAMINATION: NM cristina stress w perfusion DATE: 02/06/2025 8:08 CDT INDICATION: Chest pain TECHNIQUE: Rest images were obtained following intravenous administration of 11.2 mCi Tc99m tetrofosm in (Myoview). The patient was infused intravenously with Lexiscan (regadenoson). Then, 34.3 mCi Tc99m tetrofosmin (Myoview) was administered intravenously, and stress images were obtained. Data was shalonda nstructed into short axis and horizontal and vertical long axis SPECT images. Gated SPECT images were also obtained. COMPARISON: None. FINDINGS: There is a small fixed perfusion abnormality in the lateral wall, consistent with infarctio n. No reversible perfusion abnormalities are seen.. There is no segmental wall motion abnormality. Left ventricular ejection fraction measures 83%. IMPRESSION: 1. Small fixed perfusion abnormality in the lateral wall and the circumflex artery distribution, comp atible with infarction.. 2. Normal left ventricular ejection fraction measuring 83%. Reviewed, dictated and finalized at location A. IMPRESSION: 1. Small fixed perfusion abnormality in the lateral wall and the circumflex art miguelito distribution, compatible with infarction.. 2. Normal left ventricular ejection fraction measuring 83%.
--- NOTE | 2025-02-03 09:46 | EST_ITS ---
Patient Info Name: Radha Junior Age: 79 years : 1945 Gender: Female Ht: 65 in Wt: 150 lbs BSA: 1.78 m2 HR: 82 bpm BP: 148 / 69 mmHg Exam Date: 02/03/2025 9:46 AM Patient Status: O Admit Date: 02/03/2025 Exam Type: CA stress cristina w NM A regadenoson stress test was performed. Staff Referring Physician: Jose Antonio Colon DO Attending Provider: Jose Antonio Colon DO Exercise Technologist: Marisa Villa Exercise Physician: Jose Antonio Colon DO Summary 1. 1. Negative lexiscan stress test for ischemic ST changes by ECG criteria. 2. 2. Baseline hypertension. 3. 3. Nuclear scan to follow and will be reported separately. Please correlate with it. 4. 4. Patient informed of the above results. Protocol: Lexiscan Stress ECG Details Stage: REST Duration (min): 0 min : 45 sec HR (bpm): 84 SBP (mmHg): 148 DBP (mmHg): 69 Stage: REST Duration (min): 11 min : 40 sec HR (bpm): 79 SBP (mmHg): 148 DBP (mmHg): 69 Stage: STAGE 1 Duration (min): 1 min : 0 sec HR (bpm): 80 SBP (mmHg): 133 DBP (mmHg): 63 Stage: RECOVERY Duration (min): 1 min : 0 sec HR (bpm): 85 SBP (mmHg): 133 DBP (mmHg): 63 Stage: RECOVERY Duration (min): 2 min : 0 sec HR (bpm): 82 SBP (mmHg): 133 DBP (mmHg): 63 Stage: RECOVERY Duration (min): 3 min : 0 sec HR (bpm): 91 SBP (mmHg): 123 DBP (mmHg): 60 Stage: RECOVERY Duration (min): 4 min : 0 sec HR (bpm): 90 SBP (mmHg): 123 DBP (mmHg): 60 Stage: RECOVERY Duration (min): 5 min : 0 sec HR (bpm): 89 SBP (mmHg): 146 DBP (mmHg): 63 Stage: RECOVERY Duration (min): 5 min : 3 sec HR (bpm): 89 SBP (mmHg): 146 DBP (mmHg): 63 Rest HR: 79 bpm Peak HR: 91 bpm Rest Sys BP: 148 mmHg Peak Sys BP: 146 mmHg Max Pred HR: 139 bpm % Max Pred HR: 65 % Target HR: 118 bpm Max RPP: 13,286 bpm*mmHg Termination Reason: Completed protocol Cardiac Symptoms: Shortness of breath Total Time: 1 min : 0 sec Rest Lopez BP: 69 mmHg Peak Lopez BP: 63 mmHg Total Dose: 0.4 mg Resting ECG Sinus rhythm. Stress ECG No ST changes. Arrhythmias None. Report Signatures
--- OUTSIDE RECORDS SUMMARY | 2025-02-03 09:48 | XMS_ITS | Encounter Summary ---
Author Organization [facility] Healthcare Address [address] [place] [address] Care Team Providers Care Web Site Admin Name Role Phone Jeffrey Osorio MD Primary Care Provider Isidro Salgado MD Unavailable [phone] Yanick Carrillo MD Primary Care Provider Meena Stanley MD Primary Care Provider [phone] Cuauhtemoc Salinsa MD Primary Care Provider [phone] Encounter Details Date Type Department Care Team (Late st Contact Info) Description 03/26/2020 Telephone [facility] - Imaging [address] [place] [address] Elis Lanza, RT Social History Tobacco Use Types Packs/Day Years Used Date Smoking Tobacco: Former Cigarettes 1.5 50 1 965 - 2014 Smokeless Tobacco: Never Comments:vapes currently Alcohol Use Standard Drinks/Week Comments No 0 (1 standard drink = 0.6 oz pur e alcohol) Comments No Sex and Gender Information Value Date Recorded Sex Assigned at Not on file Legal Sex Female 2:03 AM BMET Gender Identity Not on file Sexual Orientation Not on file documented as of this encounter Plan of Treatment Not on file documented as of this encounter Visit Diagnoses Not on filedocumented in this encounter Care Teams Web Site Admin Relationship Specialty Start Date End Date Jeffrey Osorio MD PCP - General 06/24/13 03/26/20 Yanick Carrillo MD [address] [place] [address] PCP - General 03/27/20 01/13/21 Meena Stanley MD [address] [facility] [address] [place] [address] PCP - General Internal Medicine 03/06/21 07/21/22 Cuuahtemoc Salinas MD [address] [facility] [address], [place] [address] PCP - General Family Medicine 07/22/22 Isidro Salgado MD Medical Oncologist/Hatchery Worker Medical Oncology 07/26/18 documented as of this encounter
--- OUTSIDE RECORDS SUMMARY | 2025-02-03 09:48 | XMS_ITS | Clinical Summary ---
Author Organization [facility] Address [address] [place] [address] Care Team Providers Care Machine Egg Washer Name Role Phone Isidro Salgado MD Unavailable Cuauhtemoc Salinas MD Primary Care Provider [phone] Allergies Active Allergy Reactions Criticality Noted Date Comments Alcohol Hives Medium 06/12/2008 Red wine Cyclobenzaprine Blisters High Blood Mouth and stomach Dextromethorphan Hives Medium Ginusqbjwx-Eu-Hvufdtvyocfco Hives Medium 05/04/20 Guaifenesin Hives Medium Menthol Hives Medium 05/04/2019 Naproxen Hives Medium Nuts Wheezing High 10/24/2017 Peanuts Nyquil Hives Medium 05/04/2019 Phenylephrine Hives Medium Pseudoephedrine Hives Medium Methylphenidate Hives Medium 05/04/2019 Sulfa (Sulfonamide Antibiotics) Hives Medium 09/25/2017 Medications cholecalciferol (VITAMIN D-3) 1,000 unit capsuleIndications :Vitamin D Deficiency Take 1 capsule (1,000 Units total) by mouth daily Active dextroamphetamine (DEXTROSTAT) 30 mg tablet Take 1 tablet (30 mg total) by mouth every morning Active fluticasone propion-salmeterol (ADVAIR HFA) 115-21 mcg/actuation inhaler Inhale 2 puffs daily Rinse mouth with water after use. Do not swallow. Active tiotropium bromide (SPIRIVA RESPIMAT) 2.5 mcg/actuation inhaler Inhale 2 puffs daily Active atorvastatin (LIPITOR) 10 mg tablet Take 1 tablet (10 mg total) by mouth nightly Active traZODone (DESYREL) 50 mg tablet Take by mouth nightly Active LORazepam (ATIVAN) 1 mg tablet Take 0.5 tablets (0.5 mg total) by mouth every 6 (six) hours as needed for anxiety Active torsemide (DEMADEX) 10 mg tablet Take 1 tablet (10 mg total) by mouth daily as needed Active dextroamphetamine- amphetamine (ADDERALL) 10 mg tablet 2 Active candesartan (ATACAND) 4 mg tablet 2 Active sodium zirconium cyclosilicate (LOKELMA ORAL) Take 5 mg by mouth daily Active Trelegy Ellipta 100-62.5-25 mcg inhaler 1 puff daily Active Active Problems Problem Noted Date Diagnosed Date Primary narcolepsy without cataplexy 01/29/2022 Assessment & Plan (01/29/2022 1:17 PM CDT): Dx'd 40 years ago Plan MSLT to further evaluate Sleep apnea 04/22/2019 Assessment & Plan (01/29/2022 1:16 PM CDT): The differential diagnosis includes obstructive sleep apnea syndrome, upper airways resistance syndrome and simple snoring. I recommend polysomnography to further evaluate the symptoms described. The risks of untreated sleep apnea syndrome include hypertension, myocardial infarction; cerebrovascular accident and heart failure were discussed with the patient. The treatment options for obstructive sleep apnea syndrome including CPAP therapy, surgical options, oral appliances, and weight loss were discussed with the patient. In addition, the patient was warned against driving while drowsy. The patient agrees with the plan to undergo an all-night polysomnogram and more information will follow after this study. HST is contraindicated due to COPD and need to evaluate for narcolepsy with MSLT CAD (coronary artery disease) 04/22/2019 Urothelial carcinoma 04/22/2019 Primary lung adenocarcinoma 04/22/2019 Vaginal discharge 04/22/2019 Overview (04/22/2019): Added automatically from request for surgery [id number] Renal osteodystrophy 03/13/2016 Hyperlipidemia 03/13/2016 Essential (primary) hypertension 03/13/2016 Chronic kidney disease, stage 3 (moderate) 03/13 Stress incontinence 06/12/2008 Chronic obstructive pulmonary disease Assessment & Plan (01/29/2022 1:19 PM CDT): COPD is unchanged. Discussed monitoring symptoms and use of quick-relief medications and contacting us early in the course of exacerbations. Warning signs of respiratory distress were reviewed with the patient. Continue current medications. spiriva and advair Hypertension Resolved Problems Problem Noted Date Diagnosed Date Resolved Date Aftercare following surgery of the respiratory system 12/03/2017 04/22/2019 Lung nodule 09/28/2017 04/22/2019 Immunizations Immunization Administration Dates Next Due ZOSTER Recombinant 03/05/2019 Surgical History Surgery Date Site/Laterality Comments BACK SURGERY TONSILLECTOMY UVULOPALATOPHARYNGOPLASTY CYSTECTOMY 04/30/2017 ileal conduit LUNG SURGERY 10/22/2017 Right thoracoscopy, wedge resection BREAST BIOPSY 06/09/2013 Right Benign Medical History Medical History Date Comments Disorder of liver Shingles Narcolepsy Hypertension Family History Medical History Relation Name Comments Lung cancer Brother 1 Esophageal cancer Brother 2 #2 Colon cancer Brother 3 #3 Breast cancer Cousin Throat cancer Father's Brother 2 Breast cancer Father's Sister 2 Stomach cancer Mother Lung cancer Mother's Brother Other Other Family history of Descent - Western/Northern [place]; Relation Name Status Comments Brother 1 Brother 2 #2 Brother 3 #3 Cousin Father's Brother 1 (Age 58) Father's Brother 2 Father's Sister 1 (Age 64) Father's Sister 2 Mother Mother's Brother Other Social History Tobacco Use Types Packs/Day Years Used Date Smoking Tobacco: Former Cigarettes 1.5 50 1 965 - 2014 Smokeless Tobacco: Never Comments:vapes currently Alcohol Use Standard Drinks/Week Comments No 0 (1 standard drink = 0.6 oz pur e alcohol) Comments No Sex and Gender Information Value Date Recorded Sex Assigned at Not on file Legal Sex Female 2:03 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 Gender Identity Not on file Sexual Orientation Not on file Obstetrics History Last Filed Vital Signs Vital Sign Reading Time Taken Comments Blood Pressure 173/99 05/16/2024 10:15 AM CDT Pulse 77 05/16/2024 10:15 AM CDT Temperature 36.2 C (97.2 F) 05/16/2024 10:15 AM CDT Respiratory Rate 18 05/16/2024 10:15 AM CDT Oxygen Saturation 98% 05/16/2024 10:15 AM CDT Inhaled Oxygen Concentration - - Weight 71 kg (156 lb 9.6 oz) 05/16/2024 10:15 AM CDT Height 163.8 cm (5' 4.49) 05/15/2022 9:50 AM CD T Body Mass Index 26.48 05/15/2022 9:50 AM CDT Plan of Treatment Health Maintenance Due Date Last Done Comments Depression Screening 1943 Fall Risk Assessment 1943 Osteoporosis Screening-Bone Density Scan 1943 DTaP/Tdap/Td Vaccine (1 - Tdap) 1954 Hepatitis B Screening 1961 Pneumococcal vaccine 65+ (1 of 2 - PCV) 1962 Well Visit 65+ 2008 Influenza Vaccine (Season Ended) 2025 06/15/2019, 07/14/2018, 06/25/2017, Additional history exists Zoster Vaccine Completed 06/15/2019, 03/05/2019 Insurance MEDICARE [facility] CHOICE PLUS [facility] HMO/PPO Address: [address] [address] [place] [address] [facility] OPTIONS PPO [facility] HMO/PPO Address: [address] [address] [place] [address] November SHYAM FLORES [id number] MEDICARE [facility] H[facility]/PPO Address: [address] [address] [place] [address] November SHYAM FLORES [id number] MEDICARE [facility] CHOICE PLUS [facility] HMO/PPO Address: [address] [address] [place] [address] MEDICARE [facility] OPTIONS PPO [facility] HMO/PPO Address: [address] [address] [place] [address] Advance Directives For more information, please contact: [phone] * Full Code (Latest Code Status on File) Date Activated Date Inactivated Comments 10/22/2017 8:15 PM 10/28/2017 3:12 PM * Full Code Date Activated Date Inactivated Comments 10/22/2017 8:15 PM 10/22/2017 8:15 PM Care Teams Machine Egg Washer Relationship Specialty Start Date End Date Cuauhtemoc Salinas MD PCP - General Family Medicine 07/22/22 Isidro Salgado MD Medical Oncologist/Kennel Keeper Medical Oncology 07/26/18
--- OUTSIDE RECORDS SUMMARY | 2025-02-03 09:48 | XMS_ITS | Clinical Summary ---
Author Organization [facility] Address [address] [place] [address] Phone Care Team Providers Care Final Finisher Forging Dies Name Role Phone Cuauhtemoc Salinas MD Primary Care Provider [phone] Allergies Active Allergy Reactions Criticality Noted Date Comments Alcohol Hives Medium 06/12/2008 Red wine Amlodipine Besylate 02/13/2022 Bupropion 02/13/2022 Cyclobenzaprine 02/13/2022 Dextromethorphan Hives Medium 02/13/2022 Wy-Eyyywpargo-Bagpesqxsgfxp Hives Medium 05/04/20 Guaifenesin Hives Medium 02/13/2022 Menthol Hives Medium 05/04/2019 Methylphenidate Hives Medium 06/12/2008 Ritalin Naproxen Hives Medium 06/12/2008 Other 02/13/2022 Peanut (Diagnostic) 06/12/2008 Phenylephrine Hives Medium 02/13/2022 Pseudoephedrine Hives Medium 02/13/2022 Sulfa Antibiotics Hives Medium 09/25/2017 Medications atorvastatin (LIPITOR) 10 MG tablet qd 0 6 Active dextroamphetamine (DEXEDRINE SPANSULE) 15 MG 24 hr capsule qd 0 6 Active Trelegy Ellipta 100-62.5-25 MCG/ACT aerosol powder INHALE 1 PUFF BY MOUTH DAILY 3 Active amphetamine-dextr oamphetamine XR (ADDERALL XR) 30 MG 24 hr capsule TAKE 1 CAPSULE BY MOUTH ONCE DAILY IN THE MORNING 3 Active traZODone (DESYREL) 100 MG tablet Take 100 mg by mouth if needed 3 Active LORazepam (ATIVAN) 1 MG tablet Take 1 mg by mouth every 6 (six) hours if needed 4 Active hydrALAZINE (APRESOLINE) 25 MG tablet Take 25 mg by mouth in the morning and 25 mg in the evening. Active Sodium Zirconium Cyclosilicate (Lokelma) 10 g pack TAKE THE CONTENTS OF 1 PACKET ONCE DAILY FOR 2 DAYS, THEN 1 PACKET ONCE WEEKLY THEREAFTER 8 each 3 5 Active Active Problems Problem Noted Date Diagnosed Date Body mass index (BMI) 26.0-26.9, adult 4 Assessment & Plan (06/30/2024 12:01 PM CDT): No changes discussed Chronic kidney disease, stage 3 (moderate) 03/13 Essential (primary) hypertension 03/13/2016 Assessment & Plan (03/03/2024 9:03 PM CDT): Hold Candersartan Hyperlipidemia 03/13/2016 Renal osteodystrophy 03/13/2016 Encounters Date Type Department Care Team Description 12/13/2024 Orders Only [facility] [address] [facility] [address] [place] [address] Shanta Quezada MA Essential (primary) hypertension (Primary Dx); Renal osteodystrophy; Proteinuria, not otherwise specified; Vitamin D deficiency, not otherwise specified; Urinary tract infection, not otherwise specified; Iron deficiency anemia, not otherwise specified; Chronic kidney disease stage 4 ([facility]) 12/11/2024 Refill [facility] [address] [facility] [address] [place] [address] Jordan Hunt PA 11/15/2024 11:00 AM CDT Office Visit [facility] [address] [address] Jordan Hunt PA Chronic kidney disease stage 4 ([facility]) (Primary Dx); Essential (primary) hypertension; Proteinuria, not otherwise specified; Vitamin D deficiency, not otherwise specified; Renal osteodystrophy; Anemia in chronic kidney disease from Last 3 Months Immunizations Immunization Administration Dates Next Due Zoster Recombinant 03/05/2019 Family History Medical History Relation Comments Heart disease Father Cerebrovascular accident Mother Coronary arteriosclerosis Mother Heart disease Mother Malignant neoplastic disease Mother Diabetes mellitus Sibling Heart disease Sibling Hypertensive disorder Sibling Malignant neoplastic disease Sibling Anemia Neg Hx Kidney disease Neg Hx Kidney stone Neg Hx Relation Status Comments Father Mother Sibling Social History Tobacco Use Types Packs/Day Years Used Date Smoking Tobacco: Former Smokeless Tobacco: Former Tobacco Cessation:Counseling Given: Not Answered Comments Unknown Sex and Gender Information Value Date Recorded Sex Assigned at Not on file Legal Sex Female 7:52 AM MST Gender Identity Not on file Sexual Orientation Not on file Last Filed Vital Signs Vital Sign Reading Time Taken Comments Blood Pressure 134/82 11/15/2024 10:52 AM CDT Pulse 68 11/15/2024 10:52 AM CDT Temperature - - Respiratory Rate - - Oxygen Saturation - - Inhaled Oxygen Concentration - - Weight 72.1 kg (159 lb) 11/15/2024 10:52 AM CDT Height 162.6 cm (5' 4) 11/15/2024 10:52 AM CDT Body Mass Index 27.29 11/15/2024 10:52 AM CDT Plan of Treatment Upcoming Encounters Date Type Department Care Team (Late st Contact Info) Description 02/14/2025 11:20 AM CDT Office Visit [facility] [address] [facility] [address] [place] [address] Kenji Conner MD [address] [facility] [address] [place] [address] Health Maintenance Due Date Last Done Comments Pneumococcal PPSV23/PCV13 65 + Years / High and Highest Risk (1 of 5 - PCV) 1962 Influenza Vaccine (Season Ended) 2025 Insurance MEDICARE [facility] Care Teams Final Finisher Forging Dies Relationship Specialty Start Date End Date Cuauhtemoc [place] MD [address] [place] [address] PCP - General Family Medicine 06/17/22
--- OUTSIDE RECORDS SUMMARY | 2025-02-03 09:48 | XMS_ITS | Encounter Summary ---
Author Organization [facility] Healthcare Address [address] [place] [address] Care Team Providers Care Electric Locomotive Firer/Fireman Name Role Phone Isidro Salgado MD Unavailable [phone] Meena [place] MD Primary Care Provider Cuauhtemoc [place] MD Primary Care Provider [phone] Encounter Details Date Type Department Care Team (Late st Contact Info) Description 04/15/2022 Telephone [facility] [address] [place] [address] [address] [place] [address] Jim Lowry MD [address] [place], [place] [id number] Social History Tobacco Use Types Packs/Day Years Used Date Smoking Tobacco: Former Cigarettes 1.5 50 1 965 - 2015 Smokeless Tobacco: Never Comments:vapes currently Alcohol Use Standard Drinks/Week Comments No 0 (1 standard drink = 0.6 oz pur e alcohol) Comments No Sex and Gender Information Value Date Recorded Sex Assigned at Not on file Legal Sex Female 2: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 AUTOCAD DESIGNER Gender Identity Not on file Sexual Orientation Not on file documented as of this encounter Plan of Treatment Not on file documented as of this encounter Visit Diagnoses Not on filedocumented in this encounter Care Teams Electric Locomotive Firer/Fireman Relationship Specialty Start Date End Date Meena [place] MD [address] [place] [address] PCP - General Internal Medicine 03/06/21 07/21/22 Cuauhtemoc [place] MD [address] [address] PCP - General Family Medicine 07/22/22 Isidro Salgado MD Medical Oncologist/Cat Skinner Medical Oncology 07/26/18 documented as of this encounter
--- OUTSIDE RECORDS SUMMARY | 2025-02-03 09:48 | XMS_ITS | Referral Summary ---
Author Organization [facility] Address [address] [place] [address] Care Team Providers Care Pocket Closer Name Role Phone Isidro Salgado MD Unavailable [phone] Cuauhtemoc [place] MD Primary Care Provider [phone] Allergies Active Allergy Reactions Criticality Noted Date Comments Alcohol Hives Medium 06/12/2008 Red wine Cyclobenzaprine Blisters High Blood Mouth and stomach Dextromethorphan Hives Medium Klazxqocxn-Hv-Zreexmereadnd Hives Medium 05/04/20 Guaifenesin Hives Medium Menthol [...] (04/22/2019): Added automatically from request for surgery [id number] Renal osteodystrophy 03/13/2016 Hyperlipidemia 03/13/2016 Essential (primary) [...] Administration Dates Next Due ZOSTER Recombinant 03/05/2019 Social History Tobacco Use Types Packs/Day Years Used Date Smoking Tobacco: Former Cigarettes 1.5 50 1 965 - 2015 Smokeless Tobacco: Never Comments:vapes currently Alcohol Use Standard Drinks/Week Comments No 0 (1 standard drink = 0.6 oz pur e alcohol) Comments No Sex and Gender Information Value Date Recorded Sex Assigned at Not on file Legal Sex Female 2:03 AM NEEDLE LOOM OPERATOR HELPER Gender Identity Not on file Sexual Orientation [...] 05/15/2022 9:50 AM CDT Plan of Treatment Not [place] [id number] MEDICARE [facility] CHOICE PLUS [facility] HMO/PPO Address: [address] OPTIONS PPO [facility] HMO/PPO Address: [address] [address] [place] [address] MEDICARE [facility] H[facility]/PPO Address: [address] [address] [place] [id number] MEDICARE [facility] CHOICE PLUS [facility] HMO/PPO Address: [address] [address] [place] [address] [place] [id number] MEDICARE [facility] OPTIONS PPO [facility] H[facility]/PPO Address: [place] [address] Advance Directives For more information, please contact: [phone] * Full Code (Latest Code Status on File) Date Activated Date Inactivated Comments 10/22/2017 8:15 PM 10/28/2017 3:12 PM * Full Code Date Activated Date Inactivated Comments 10/22/2017 8:15 PM 10/22/2017 8:15 PM Care Teams Pocket Closer Relationship Specialty Start Date End Date Cuauhtemoc [place] MD PCP - General Family Medicine 07/22/22 Isidro Salgado MD Medical Oncologist/Carbon Setter Medical Oncology 07/26/18
--- OUTSIDE RECORDS SUMMARY | 2025-02-03 09:48 | XMS_ITS | Encounter Summary ---
Author Organization [facility] Healthcare Address [address] [place] [address] Care Team Providers Care Upholsterer Assembly Line Name Role Phone Isidro Salgado MD Unavailable [phone] Meena [place] MD Primary Care Provider [phone] Cuauhtemoc [place] MD Primary Care Provider [phone] Encounter Details Date Type Department Care Team (Late st Contact Info) Description 03/28/2021 Telephone [facility] - Imaging [address] [place] [address] Transcribed Order, Provider Social History Tobacco Use Types Packs/Day Years Used Date Smoking Tobacco: Former Cigarettes 1.5 50 1 965 - 2015 Smokeless Tobacco: Never Comments:vapes currently Alcohol Use Standard Drinks/Week Comments No 0 (1 standard drink = 0.6 oz pur e alcohol) Comments No Sex and Gender Information Value Date Recorded Sex Assigned at Not on file Legal Sex Female 2:03 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 INSTRUCTOR Gender Identity Not on file Sexual Orientation Not on file documented as of this encounter Plan of Treatment Not on file documented as of this encounter Visit Diagnoses Not on filedocumented in this encounter Care Teams Upholsterer Assembly Line Relationship Specialty Start Date End Date Meena [place] MD [address] [facility] [address] [place] [address] PCP - General Internal Medicine 03/06/21 07/21/22 Cuauhtemoc [place] MD [address] [facility] [address] [place] [address] PCP - General Family Medicine 07/22/22 Isidro Salgado MD Medical Oncologist/Mortgage Processor Medical Oncology 07/26/18 documented as of this encounter
--- OUTSIDE RECORDS SUMMARY | 2025-02-03 09:48 | XMS_ITS | Encounter Summary ---
Author Organization [facility] Healthcare Address [address] [place] [address] Care Team Providers Care Research Technician Name Role Phone Isidro Salgado MD Unavailable [phone] Yanick Carrillo MD Primary Care Provider [phone] Meena [place] MD Primary Care Provider Cuauhtemoc [place] MD Primary Care Provider [phone] Reason for Visit * Reason Onset Date Comments Prescreening 03/27/2020 Prescreening Que stions 1. no 2. no 4. no Encounter Details Date Type Department Care Team (Late st Contact Info) Description 03/27/2020 Telephone [facility] - Imaging [address] [place] [address] [address] Velez RT Prescreening (Prescreening Questions 1. no 2. no 4. no) Social History Tobacco Use Types Packs/Day Years Used Date Smoking Tobacco: Former Cigarettes 1.5 50 1 965 - 2015 Smokeless Tobacco: Never Comments:vapes currently Alcohol Use Standard Drinks/Week Comments No 0 (1 standard drink = 0.6 oz pur e alcohol) Comments No Sex and Gender Information Value Date Recorded Sex Assigned at Not on file Legal Sex Female 2:03 AM AIR TUBE RELEASER Gender Identity Not on file Sexual Orientation Not on file documented as of this encounter Plan of Treatment Not on file documented as of this encounter Visit Diagnoses Not on filedocumented in this encounter Care Teams Research Technician Relationship Specialty Start Date End Date Yanick Carrillo MD [address] [facility] [address] [place] [address] PCP - General 03/27/20 01/13/21 Meena [place] MD [address] [facility] [address] [address] PCP - General Internal Medicine 03/06/21 07/21/22 Cuauhtemoc [place] MD [address] [facility] [address] [address] PCP - General Family Medicine 07/22/22 Isidro Salgado MD Medical Oncologist/Naval Gunfire Liaison Officer Medical Oncology 07/26/18 documented as of this encounter
== END 2025-02-03 09:38 | disposition home or self-care (01) ==
PROVIDERS: PCP Family Medicine; Visit Provider Internal Medicine Cardiovascular Disease
DX: R94.39 Abnormal result of other cardiovascular function study (principal); I10 Essential (primary) hypertension
CPT/HCPCS: 78452; 93017; A9502; J2785